=== PATIENT | male | born 1970 | race Caucasian/White ===

== ENCOUNTER 2018-07-22 16:44 | Emergency (ER) | payer MEDICAID ==
[~2018-07-22] VITALS: Ht 165.1 cm; Wt 73.9 kg
[2018-07-22 16:57] VITALS: BP 128/83
--- NOTE | 2018-07-22 17:02 | NUR ---
PT VSS, NOT IN DISTRESS; AMB TO LOBBY WITH
--- NOTE | 2018-07-22 17:38 | NUR ---
PT AMBULATES TO BED 1
--- NOTE | 2018-07-22 17:48 | NUR ---
PATIENT PRESENTS TO ED WITH C/O RIGHT CLAVICLE AND RIGHT SHOULDER PAIN X 3 MONTH BUT HAS RECENTLY NOTICED A GROWTH AT RIGHT CLAVICLE AREA. DEFORMITY NOTED OVER RIGHT MIDCLAVICULAR AREA. PAIN 11/14. VSS; PATIENT POSITIONED FOR COMFORT; HOB ELEVATED; BEDRAILS UP X2; BED DOWN. ER MD MADE AWARE OF PT STATUS.
--- NOTE | 2018-07-22 18:40 | NUR ---
Patient being evaluated by physician at bedside.
--- NOTE | 2018-07-22 19:12 | NUR ---
REPORT GIVEN TO SDE NURSE FOR CONTINUE OF CARE.
--- NOTE | 2018-07-22 20:24 | NUR ---
Patient discharged with v/s stable. Written and verbal after care instructions given and explained. Patient alert, oriented and verbalized understanding of instructions. Ambulatory with steady gait. All questions addressed prior to discharge. ID band removed. Patient advised to follow up with PMD. Rx of MELOXICAM given. Patient educated on indication of medication including possible reaction and side effects. Opportunity to ask questions provided and answered.
[2018-07-22 20:25] VITALS: BP 132/68
== END 2018-07-22 20:24 | disposition home or self-care (01) ==
LOC: MED 16:44
DX: M94.0 Chondrocostal junction syndrome [Tietze] (principal)
CPT/HCPCS: 73000; 73030; 99283

== ENCOUNTER 2018-11-25 09:39 | Emergency (ER) | payer MEDICAID ==
[~2018-11-25] VITALS: Ht 167.6 cm; Wt 74.8 kg
--- NOTE | 2018-11-25 09:50 | NUR ---
Patient ambulated to bed 4 with family. RN evaluating patient at bedside.
[2018-11-25 09:56] VITALS: BP 128/75
--- NOTE | 2018-11-25 10:07 | NUR ---
PT C/O L HIP PAIN RADIATING TO L THIGH 6/10 AND DULL ACCOMPANIED BY NUMBNESS/TINGLING X 1 WEEK. PT DENIES INJURY. PT IS AMBULATORY WITH STEADY GAIT. PT REPORTS TAKING IBUPROFEN AT HOME FOR THE PAIN WITH MODERATE RELIEF. NO SWELLING , REDNESS OBSERVED AT THE SITE. CAN MOVE BOTH FEET , FEEL SENSATION . DENIES ANY SENSATION TO TOUCH AT THE LFT THIGH. ER MD TO SEE THE PT. HX: DENIES RX: DENIES
--- NOTE | 2018-11-25 10:56 | NUR ---
Dr. Philip is evaluating the patient at bedside.
[2018-11-25] MEDS ORDERED: KETOROLAC 60 MG/2 ML VIAL IM ONE (11:05)
[2018-11-25] MEDS ORDERED: traMADol 50 MG TAB PO ONE (11:05)
--- NOTE | 2018-11-25 11:13 | NUR ---
Patient taken to XRAY via wheelchair by tech.
[2018-11-25 12:33] VITALS: BP 120/70
--- NOTE | 2018-11-25 12:33 | NUR ---
Patient discharged with v/s stable. Written and verbal after care instructions given and explained. Patient alert, oriented and verbalized understanding of instructions. Ambulatory with steady gait. All questions addressed prior to discharge. ID band removed. Patient advised to follow up with PMD. Rx of VOLTAREN XR given. Patient educated on indication of medication including possible reaction and side effects. Opportunity to ask questions provided and answered.
== END 2018-11-25 12:32 | disposition home or self-care (01) ==
LOC: MED 09:39
DX: M12.88 Other specific arthropathies, not elsewhere classified, other specified site (principal); M54.42 Lumbago with sciatica, left side
CPT/HCPCS: 72100; 96372; 99283; J1885